=== PATIENT | female | born 1985 | race Two or more races ===

== ENCOUNTER 2017-04-15 16:17 | Emergency (ER) | payer SELFPAY ==
[2017-04-15 16:49] VITALS: BP 105/66; PULSE 76; RESP 15; TEMP 98.9; O2SAT 100
--- NOTE | 2017-04-15 17:02 | ED PDOC ---
HPI: Female Pain Time Seen by Provider: 04/15/17 16:54 Chief Complaint (Nursing): Female Genitourinary Chief Complaint (Provider): Vaginal bleeding in History Per: Patient History/Exam Limitations: no limitations Onset/Duration Of Symptoms: Hrs Current Symptoms Are (Timing): Still Present Severity: None Associated Symptoms: denies: Fever, Chills, Nausea, Vomiting, Loss Of Appetite, Urinary Symptoms Alleviating Factors: None Additional Complaint(s): 31 yo at 12 weeks presents with vaginal bleeding, red. Pt states she has intercourse a few hours prior. Pt has seen OB and everything has been going well. No cramping/abdominal pain. Past Medical History Reviewed: Historical Data, Nursing Documentation, Vital Signs Vital Signs: Last Vital Signs Temp 98.9 F 04/15/17 16:45 Pulse 76 04/15/17 16:45 Resp 15 04/15/17 16:45 BP 105/66 04/15/17 16:45 Pulse Ox 100 04/15/17 16:45 - Medical History PMH: No Chronic Diseases - Surgical History Surgical History: No Surg Hx - Family History Family History: States: No Known Family Hx - Living Arrangements Living Arrangements: With Family - Social History Current smoker - smoking cessation education provided: No - Allergies Allergies/Adverse Reactions: Allergies Allergy/AdvReac Type Severity Reaction Status Date / Time No Known Allergies Allergy Verified 04/15/17 16:54 Review of Systems ROS Statement: Except As Marked, All Systems Reviewed And Found Negative Constitutional: Negative for: Fever, Chills Genitourinary Female: Positive for: Vaginal Bleeding. Negative for: Dysuria, Vaginal Discharge, Pelvic Pain Physical Exam - Reviewed Nursing Documentation Reviewed: Yes Vital Signs Reviewed: Yes - Physical Exam Appears: Positive for: Well, Non-toxic, No Acute Distress Head Exam: Positive for: ATRAUMATIC, NORMAL INSPECTION, NORMOCEPHALIC Skin: Positive for: Normal Color, Warm, DRY Eye Exam: Positive for: Normal appearance ENT: Positive for: Normal ENT Inspection Neck: Positive for: Normal, Painless ROM Cardiovascular/Chest: Positive for: Regular Rate, Rhythm Respiratory: Positive for: Normal Breath Sounds. Negative for: Accessory Muscle Use, Respiratory Distress Gastrointestinal/Abdominal: Negative for: Tenderness Back: Positive for: Normal Inspection Extremity: Positive for: Normal ROM Neurologic/Psych: Positive for: Alert, Oriented - Laboratory Results Result Diagrams: 04/15/17 18:00 04/15/17 18:00 - ECG O2 Sat by Pulse Oximetry: 100 Pulse Ox Interpretation: Normal Medical Decision Making Medical Decision Making: (+) FHT on US Blood type O (+) Disposition - Clinical Impression Clinical Impression: Vaginal bleeding in - Patient ED Disposition Is Patient to be Admitted: No Counseled Patient/Family Regarding: Diagnosis, Need For Followup - Disposition Disposition: Routine/Home Disposition Time: 19:09 Condition: GOOD Instructions: First Trimester Vaginal Bleed (ED) Forms: [employer] (Al[place]ian)
[2017-04-15 18:19] LABS: MEAN CELL VOLUME 93.7 fl (81.0-99.0); RBC 3.87 Mil/uL (3.80-5.20); RED CELL DISTRIBUTION WIDTH 12.1 % (11.5-14.5); WHITE BLOOD COUNT 11.7 K/uL (4.8-10.8)
[2017-04-15 18:32] LABS: ALB/GLOB RATIO 1.3 (1.0-2.1); ALBUMIN 4.1 g/dL (3.5-5.0); ALT/SGPT 41 U/L (9-52); AST/SGOT 22 U/L (14-36); BLOOD UREA NITROGEN 12 mg/dl (7-17); CALCIUM 9.7 mg/dL (8.4-10.2); GFR AFRICAN-AMERICAN > 60; GFR NON-AFRICAN AMERICAN > 60
--- NOTE | 2017-04-15 18:46 | US ---
EXAM: US Uterus, Limited CLINICAL HISTORY: 31 years old, female; Pain; complicated by abdominal or pelvic pain; Lower; Second trimester; Gestational age or lmp: See us ws; ; Additional info: 12 weeks, bleeding TECHNIQUE: Real-time ultrasound of the maternal uterus (limited) with image documentation. COMPARISON: No relevant prior studies available. FINDINGS: Fetus: Single live intrauterine gestation. Estimated gestational age of 13 weeks 1 day by measurements. No gross anomaly is appreciated. Heart rate: heart rate of 154 beats per minute. Placenta: Posterior. No placenta previa or abruption. Amniotic fluid: Normal. Cervix: No cervical dilatation or effacement. Small fluid within lower cervix/vagina. Adnexa: RIGHT ovary: Normal. LEFT ovary: 1.5 x 1.2 x 1.1 cm anechoic lesion. No adnexal masses. Free fluid: No significant free fluid. IMPRESSION: 1. Single live intrauterine gestation. 2. LEFT ovarian cyst. 3. Incidental/non-acute findings are described above.
== END 2017-04-15 21:04 | disposition home or self-care (01) ==
LOC: H.ER 16:17
DX: O46.90 Antepartum hemorrhage, unspecified, unspecified trimester (principal)